=== PATIENT | female | born 2000 | race African-American/Black ===

== ENCOUNTER 2022-02-28 17:41 | Emergency (ER) | payer OTHER, SELFPAY | END 2022-02-28 19:30 | disposition home or self-care (01) | LOC: ERS 17:41 | DX: M62.838 Other muscle spasm (principal) ==

== ENCOUNTER 2023-05-04 09:36 | Emergency (ER) | payer SELFPAY | END 2023-05-04 10:28 | disposition home or self-care (01) | LOC: ERS 09:36 | DX: H10.9 Unspecified conjunctivitis (principal) | CPT/HCPCS: 99282 ==

== ENCOUNTER 2025-06-23 13:02 | Emergency (ER) | payer OTHER | END 2025-06-23 16:06 | LOC: ERS 13:02 | DX: Z53.21 Procedure and treatment not carried out due to patient leaving prior to being seen by health care provider (principal) ==